=== PATIENT | female | born 1985 | race African-American/Black ===

== ENCOUNTER 2018-07-27 00:18 | Emergency (ER) | payer SELFPAY ==
[~2018-07-27] VITALS: Ht 172.7 cm; Wt 98.6 kg
--- NOTE | 2018-07-27 00:45 | NUR ---
PT PRESENTED WITH C/O CHEST AND STOMACH PAIN THAT STARTED 3 HOURS AGO, DENIES NAUSEA, FEVERS. PT IS DEAF BUT ABLE TO WRITE. MONITORS APPLIED, SIDERAILS UP X2, CALL LIGHT WITHIN REACH.
[2018-07-27] MEDS ORDERED: MAALOX/HYOSCYAMINE/LIDOCAINE 45 ML BTL ONE (00:46)
--- NOTE | 2018-07-27 00:51 | NUR ---
PT MEDICATED PER MAR
[2018-07-27 01:00] LABS: BASOPHILS # (AUTO) 0.04 x10^3/uL (0-0.1); BASOPHILS % (AUTO) 1 % (0-1); EOSINOPHILS # (AUTO) 0.09 x10^3/uL (0-0.4); EOSINOPHILS % (AUTO) 2 % (1-7); LYMPHOCYTES % (AUTO) 46 % (22-44); MD NO; MEAN CORPUSCULAR HEMOGLOBIN 29.8 pg (27.0-34.8); MEAN CORPUSCULAR HGB CONC 33.9 g/dL (32.4-35.8); MEAN PLATELET VOLUME 9.2 fL (7.4-10.4); MONOCYTES # (AUTO) 0.39 x10^3/uL (0.2-0.8); MONOCYTES % (AUTO) 9 % (2-9); NEUTROPHILS # (AUTO) 1.75 x10^3/uL (1.8-6.8); NEUTROPHILS % (AUTO) 42 % (42-75); PLATELET COUNT 279 x10^3/uL (130-400); RED CELL DISTRIBUTION WIDTH 13.1 % (9.6-15.2)
[2018-07-27] MEDS ORDERED: KETOROLAC 30 MG/1 ML IM ONE (01:00)
[2018-07-27] MEDS ORDERED: KETOROLAC 30 MG/1 ML ONE (01:00)
[2018-07-27] MEDS ORDERED: MAALOX/HYOSCYAMINE/LIDOCAINE 45 ML BTL PO ONE (01:00)
[2018-07-27 01:11] LABS: ALANINE AMINOTRANSFERASE 22 U/L (12-78); ALBUMIN 3.5 g/dL (3.4-5.0); ANION GAP 7 mmol/L (5-15); CALCIUM 8.8 mg/dL (8.5-10.1); CHLORIDE 106 mmol/L (98-107); CREATININE 0.75 mg/dL (0.55-1.02)
[2018-07-27 01:15] LABS: ALKALINE PHOSPHATASE 126 U/L (45-117); BILIRUBIN,TOTAL 0.2 mg/dL (0.2-1.0); TOTAL PROTEIN 7.7 g/dL (6.4-8.2); TROPONIN I < 0.015 ng/mL (0.000-0.045)
[2018-07-27] MEDS ORDERED: SODIUM CHLORIDE FLUSH 10ML SYR IVF ONE (02:00)
[2018-07-27] MEDS ORDERED: SODIUM CHLORIDE 0.9% 1,000ML IVBOLUS ONE (02:00)
--- NOTE | 2018-07-27 02:13 | NUR ---
PT RESTING WITH EYES CLOSED, NAD, MONITORS IN PLACE, IV FLUIDS INFUSING, CALL LIGHT WITHIN REACH.
[2018-07-27 03:10] VITALS: BP 110/74
== END 2018-07-27 03:23 | disposition home or self-care (01) ==
LOC: ED 02:48
DX: R07.2 Precordial pain (principal); E11.9 Type 2 diabetes mellitus without complications
CPT/HCPCS: 36415; 71045; 76700; 80053; 83880; 84484; 85025; 93005; 96360; 96372; 99284; J1885; J7030

== ENCOUNTER 2018-07-29 03:20 | Emergency (ER) | payer SELFPAY ==
--- NOTE | 2018-07-29 04:03 | NUR ---
PT. TO ED WITH C/O SOB FOR 3 HOURS AND CP X 1 HOUR. REPORTS BEING DEAF AND USES PEN/PAPER FOR QUESTIONS/ANSWERS. REPORTS HX OF ASTHMA BUT DENIES OTHER HISTORY. ONLY USES INHAILER FOR ASTHMA. WALKED HERE WILL ALL LUGGAGE. VSS AND PT. WITH NADN. ALL MONITORS PLACED AND EKG HAS BEEN DONE AND PRESENTED TO NINA.
--- NOTE | 2018-07-29 04:49 | NUR ---
PT. CALL LIGHT ON; THIS RN ENTERED ROOM. PT. NOT IN ROOM AND ALL HAD BEEN REMOVED; ALL BELONGINGS REMAIN IN ROOM. PT. AND FRIEND DOWN THE CRABTREE IN THE BATHROOM. PT. AMBULATORY BACK TO ROOM WITH STEADY GAIT. NADN. ALL MONITORS REPLACED AND PT. GIVEN WARM BLANKET. CALL LIGHT IN REACH. PT. IS AWAITING PROVIDER ELMA.
[2018-07-29] MEDS ORDERED: ONDANSETRON 2MG/ML, 2ML ONE (05:28)
[2018-07-29] MEDS ORDERED: SODIUM CHLORIDE FLUSH 10ML SYR IVF ONE (05:30)
[2018-07-29] MEDS ORDERED: ONDANSETRON 2MG/ML, 2ML IVPush ONE (05:30)
--- NOTE | 2018-07-29 05:45 | NUR ---
IV ESTABLISHED, LABS DRAWN, PT. MEDICATED PER JUL. DR. RAY IN TO EVAL PT. AND DISCUSS POC WITH PT. AND FRIEND AT BS.
[2018-07-29 06:22] LABS: ALBUMIN 3.5 g/dL (3.4-5.0); ANION GAP 9 mmol/L (5-15); CHLORIDE 106 mmol/L (98-107)
[2018-07-29 06:25] LABS: ALANINE AMINOTRANSFERASE 20 U/L (12-78); ALKALINE PHOSPHATASE 119 U/L (45-117); BILIRUBIN,TOTAL 0.6 mg/dL (0.2-1.0); CREATININE 0.71 mg/dL (0.55-1.02); TOTAL PROTEIN 7.6 g/dL (6.4-8.2)
[2018-07-29 06:27] LABS: BASOPHILS # (AUTO) 0.02 x10^3/uL (0-0.1); BASOPHILS % (AUTO) 1 % (0-1); EOSINOPHILS # (AUTO) 0.05 x10^3/uL (0-0.4); EOSINOPHILS % (AUTO) 1 % (1-7); LYMPHOCYTES # (AUTO) 2.18 x10^3/uL (1-3.4); LYMPHOCYTES % (AUTO) 42 % (22-44); MD NO; MEAN CORPUSCULAR HGB CONC 33.9 g/dL (32.4-35.8); MEAN CORPUSCULAR VOLUME 88.4 fL (80-100); MEAN PLATELET VOLUME 9.2 fL (7.4-10.4); MONOCYTES # (AUTO) 0.43 x10^3/uL (0.2-0.8); MONOCYTES % (AUTO) 8 % (2-9); NEUTROPHILS # (AUTO) 2.58 x10^3/uL (1.8-6.8); NEUTROPHILS % (AUTO) 49 % (42-75); PLATELET COUNT 250 x10^3/uL (130-400); RED BLOOD COUNT 4.62 x10^6/uL (3.82-5.3); RED CELL DISTRIBUTION WIDTH 13.3 % (9.6-15.2)
--- NOTE | 2018-07-29 06:37 | NUR ---
PT. AMBULATORY TO BR WITH STEADY GAIT. PT. DID VERBALIZE WITH FRIEND UNDERSTANDING OF CLEAN CATCH UA.
--- NOTE | 2018-07-29 07:08 | NUR ---
BS REPORT TO BRANDEN PERKINS.
[2018-07-29 07:13] VITALS: BP 122/62
--- NOTE | 2018-07-29 07:13 | NUR ---
RECEIVED BEDSIDE REPORT FROM BRANDEN IVAN. PT RESTING ON [facility]. GIRLFRIEND BEDSIDE. NO ACUTE DISTRESS NOTED. AWAITING UA
--- NOTE | 2018-07-29 07:22 | NUR ---
Patient/Caregiver given discharge instructions and they have confirmed that they understand the instructions. Patient ambulatory with steady gait. PT LEFT WITH ALL PERSONAL BELONGINGS. PIV DISCONTINUED WITH TIP INTACT. PRESSURE DRESSING APPLIED.
[2018-07-29 07:23] LABS: HCG UR SG > 1.045 (1.003-1.030); MICROSCOPIC INDICATED
[2018-07-29 07:38] LABS: CULTURE INDICATED? YES
== END 2018-07-29 07:27 | disposition home or self-care (01) ==
LOC: ED 07:15
DX: J45.31 Mild persistent asthma with (acute) exacerbation (principal); K59.00 Constipation, unspecified; E11.65 Type 2 diabetes mellitus with hyperglycemia
CPT/HCPCS: 36415; 74022; 80053; 81001; 81025; 83690; 85025; 87086; 93005; 96374; 99284; J2405